=== PATIENT | male | born 1980 | race Two or more races ===

== ENCOUNTER 2017-04-05 01:43 | Emergency (ER) | payer OTHER ==
[~2017-04-05] VITALS: Ht 167.6 cm; Wt 83.0 kg
[2017-04-05] MEDS ORDERED: IBUPROFEN 800 MG TAB PO ONE (04:29)
[2017-04-05] MEDS ORDERED: IBUPROFEN 600 MG TAB PO ONE (04:30)
[2017-04-05 04:39] VITALS: BP 126/87
== END 2017-04-05 04:44 ==
LOC: ER 01:51
DX: S01.01XA Laceration without foreign body of scalp, initial encounter (principal); Y04.0XXA Assault by unarmed brawl or fight, initial encounter; Y93.89 Activity, other specified; Y92.89 Other specified places as the place of occurrence of the external cause; Y99.8 Other external cause status
CPT/HCPCS: 12001; 70486